=== PATIENT | male | born 1995 | race Caucasian/White ===

== ENCOUNTER 2020-03-31 20:25 | Emergency (ER) | payer SELFPAY ==
[~2020-03-31] VITALS: Ht 165.1 cm; Wt 102.5 kg
[2020-03-31 20:47] VITALS: BP 145/79
--- NOTE | 2020-03-31 20:51 | NUR ---
triaged and waiting in lobby.
--- NOTE | 2020-03-31 21:07 | NUR ---
EKG PERFORMED AT BEDSIDE. EKG READS SINUS RHYTHM @ 58
--- NOTE | 2020-03-31 21:42 | NUR ---
To ED bed 04
--- NOTE | 2020-03-31 21:45 | NUR ---
24 yo male bib for s/p fall. pt states he blacked out x 1-2 mins per . denies lightheadedness/dizziness @ this time. upper and lower extremities weak +1 strength. skin warm dry intact. lungs clear even unlabored. blood sugar check 91. denies pain @ this time. rachel locked in lowest position. ax: denies hx: denies
[2020-03-31 23:03] LABS: BASOPHILS # (AUTO) 0.1 K/uL (0.00-0.22); EOSINOPHILS # (AUTO) 0.3 K/uL (0-0.4); EOSINOPHILS % (AUTO) 3.2 % (0.0-4.0); HEMATOCRIT 42.3 % (36-52); HEMOGLOBIN 14.6 g/dL (12.0-18.0); LYMPHOCYTES # (AUTO) 3.1 K/uL (2.0-11.5); LYMPHOCYTES % (AUTO) 39.1 % (20.5-51.1); MEAN CORPUSCULAR HEMOGLOBIN 31 pg (27-31); MEAN CORPUSCULAR HGB CONC 34 g/dL (33-37); MONOCYTES # (AUTO) 0.7 K/uL (0.8-1.0); MONOCYTES % (AUTO) 8.8 % (1.7-9.3); NEUTROPHILS # (AUTO) 3.9 K/uL (1.8-7.7); NEUTROPHILS % (AUTO) 47.9 % (42.2-75.2); PLATELET COUNT (AUTO) 298 K/uL (140-450); RED CELL DISTRIBUTION WIDTH 13.2 % (11.6-13.7); WHITE BLOOD COUNT (AUTO) 8.1 K/uL (4.8-10.8)
[2020-03-31 23:38] LABS: ANION GAP 12.3 (8-16); CARBON DIOXIDE 27.9 mmol/L (21-32); CREATININE 1.1 mg/dL (0.6-1.3); POTASSIUM 4.2 mmol/L (3.5-5.1); TOTAL BILIRUBIN 0.4 mg/dL (0.0-1.0)
[2020-04-01 00:20] VITALS: BP 125/78
--- NOTE | 2020-04-01 00:20 | NUR ---
Patient discharged with v/s stable. Written and verbal after care instructions given and explained. Patient verbalized understanding. Ambulatory with steady gait. All questions addressed prior to discharge. Advised to follow up with PMD.
== END 2020-04-01 00:20 | disposition home or self-care (01) ==
LOC: MED 20:25
DX: R55 Syncope and collapse (principal)
CPT/HCPCS: 36415; 70450; 80053; 82948; 85025; 93005; 99285

== ENCOUNTER 2020-12-04 18:29 | Inpatient (IN) | payer MEDICAID, SELFPAY ==
[~2020-12-04] VITALS: Ht 167.6 cm; Wt 99.3 kg
[2020-12-04 18:35] VITALS: BP 144/89
--- NOTE | 2020-12-04 18:47 | NUR ---
Patient ambulated to bed 2
--- NOTE | 2020-12-04 18:52 | NUR ---
25/M presents to ED with c/o epigastric pain radiating to bilateral flank since last night. Patient states after eating soup last night he began having epigastric pain, states he took Tums with no relief. Patient states when he woke up today he began to feel dizzy and the pain began to radiate to bilateral flanks. Describes it as a 9/10 sharp constant pain. Patient denies nausea, vomiting, diarrhea, dysuria and hematuria. Patient placed in wnDr. Cordova bedside evaluating patient.
--- NOTE | 2020-12-04 19:14 | NUR ---
RECEIVED REPORT FROM SHANA JAIN, FOR CONTINUITY OF CARE
--- NOTE | 2020-12-04 19:15 | NUR ---
Pt report given to Mary. Transfer of care at this time.
[2020-12-04 19:22] LABS: BASOPHILS # (AUTO) 0.1 K/uL (0.00-0.22); BASOPHILS % (AUTO) 0.7 % (0.0-2.0); EOSINOPHILS # (AUTO) 0.2 K/uL (0-0.4); EOSINOPHILS % (AUTO) 2.4 % (0.0-4.0); HEMATOCRIT 43.5 % (36-52); HEMOGLOBIN 14.8 g/dL (12.0-18.0); LYMPHOCYTES # (AUTO) 2.2 K/uL (2.0-11.5); LYMPHOCYTES % (AUTO) 23.2 % (20.5-51.1); MEAN CORPUSCULAR HEMOGLOBIN 31 pg (27-31); MEAN CORPUSCULAR HGB CONC 34 g/dL (33-37); MEAN CORPUSCULAR VOLUME 89.7 fL (80-94); MONOCYTES # (AUTO) 0.7 K/uL (0.8-1.0); MONOCYTES % (AUTO) 7.7 % (1.7-9.3); NEUTROPHILS # (AUTO) 6.3 K/uL (1.8-7.7); PLATELET COUNT (AUTO) 325 K/uL (140-450); RED BLOOD CELL COUNT(AUTO) 4.84 MIL/uL (4.20-6.10); RED CELL DISTRIBUTION WIDTH 13.1 % (11.6-13.7); WHITE BLOOD COUNT (AUTO) 9.6 K/uL (4.8-10.8)
[2020-12-04 19:36] LABS: ALBUMIN 4.1 g/dL (3.4-5.0); CREATININE 1.1 mg/dL (0.6-1.3); TOTAL BILIRUBIN 0.4 mg/dL (0.0-1.0)
[2020-12-04] MEDS ORDERED: NACL 0.9% 1,000 ML IV ONE (19:55)
[2020-12-04] MEDS ORDERED: MORPHINE SULFATE 4 MG/ML SYR IVP ONE (19:55)
--- NOTE | 2020-12-04 20:40 | NUR ---
pt returned from CT via w/c
--- NOTE | 2020-12-04 22:21 | NUR ---
COLLECTED OLGA SWAB AND SENT TO LAB, HANDED TO CPT ELVIS
[2020-12-05 01:00] VITALS: BP 123/71
--- NOTE | 2020-12-05 01:00 | NUR ---
ADMITTED A 25M FROM ER .CAME BY OLS DUE TO EPIGASTRIC PAIN . MED SURG PT. AWAKE,ALERT AND ORIENTED X4. AMBULATORY. WITH NO OTHER MEDICAL PROBLEM/HISTORY. HAS IV ACCESS LOCATED ON HIS RT AC G#20 . CLEAR AND PATENT. KEPT PT NPO. PLAN OF CARE DISCUSSED AND VERBALIZED UNDERSTANDING. FREQUENT ROUNDS NEEDED. BED ON LOWEST POSITION. SIDE RAILS UP X2. CALL LIGHT AND URINAL PLACED WITHIN REACH. WILL CONTINUE TO MONITOR.
--- NOTE | 2020-12-05 01:00 | NUR ---
Patient will be admitted to care of DR. SOLIZ. Admited to [facility]. Will go to [id number]. Belongings list completed. Report to OLAYINKA JAIN.
[2020-12-05] MEDS: NACL 0.9% 1,000 ML IV SCH ×4 (01:13→11:09)
[2020-12-05] MEDS: MORPHINE SULFATE 2 MG/ML SYR IVP PRN (01:49)
--- NOTE | 2020-12-05 01:49 | NUR ---
C/O ABDOMINAL PAIN . MEDICATED ORDERED. WILL CONTINUE TO MONITOR.
[2020-12-05 04:00] VITALS: BP 114/67
--- NOTE | 2020-12-05 04:00 | NUR ---
PT ASLEEP. NO C/O ANY DISCOMFORT NOTED.
--- NOTE | 2020-12-05 05:30 | NUR ---
CHECKED ON PT. SLEEPING AT THIS TIME. NO S/S OF ANY PAIN NOTED.
--- NOTE | 2020-12-05 07:18 | NUR ---
ENDORSED PT IN STABLE CONDITION TO AM NURSE.
--- NOTE | 2020-12-05 07:20 | NUR ---
RECEIVED BEDSIDE REPORT FROM DIGITAL OPERATIONS ANALYST NURSE FOR CONTINUITY OF CARE. PT IS AWAKE,ALERT AND ORIENTED X4. AMBULATORY. RESPIRATIONS EVEN AND UNLABORED. ON ROOM AIR AND NO S/S OF DISTRESS NOTED. SKIN IS WARM AND DRY. HAS IV ACCESS LOCATED ON HIS RAC G#20. INTACT AND PATENT. KEPT PT NPO. PLAN OF CARE DISCUSSED. SAFETY PRECAUTIONS IN PLACE. BED ON LOWEST POSITION. CALL LIGHT AND URINAL PLACED WITHIN REACH. WILL CONTINUE TO MONITOR.
[2020-12-05 08:00] VITALS: BP 111/62
--- NOTE | 2020-12-05 09:00 | NUR ---
NO SCHEDULED MEDS GIVEN. PT IS STABLE. DENIES AT THE MOMENT. WILL CONTINUE TO MONITOR.
[2020-12-05] MEDS: MORPHINE SULFATE 4 MG/ML SYR IVP PRN ×5 (10:07→23:18)
--- NOTE | 2020-12-05 10:07 | NUR ---
PATIENT COMPLAINED OF 8/10 ABD PAIN. ADMINISTERED MORPHINE IVP PER MD ORDERED.
[2020-12-05] MEDS ORDERED: ONDANSETRON 4 MG/2 ML VIAL IM/IVP PRN (10:15)
[2020-12-05] MEDS ORDERED: KETOROLAC 30 MG/ML VIAL IVP PRN (10:15)
[2020-12-05] MEDS ORDERED: DOCUSATE SODIUM 100 MG GELCAP PO PRN (10:15)
[2020-12-05] MEDS ORDERED: LORazepam 2 MG/ML VIAL IM/IVP PRN (10:15)
[2020-12-05] MEDS ORDERED: POTASSIUM CHLORIDE 10 MEQ TABER PO PRN (10:15)
[2020-12-05] MEDS ORDERED: ZOLPIDEM 5 MG TAB PO PRN (10:15)
[2020-12-05] MEDS ORDERED: ACETAMINOPHEN 325 MG TAB PO PRN (10:15)
[2020-12-05] MEDS ORDERED: MAG SULF 2000 MG/WATER PREMIX 50 ML IV PRN (10:15)
[2020-12-05 10:40] LABS: BASOPHILS % (AUTO) 0.5 % (0.0-2.0); EOSINOPHILS # (AUTO) 0.2 K/uL (0-0.4); EOSINOPHILS % (AUTO) 2.3 % (0.0-4.0); HEMATOCRIT 42.9 % (36-52); HEMOGLOBIN 14.7 g/dL (12.0-18.0); LYMPHOCYTES # (AUTO) 1.9 K/uL (2.0-11.5); LYMPHOCYTES % (AUTO) 25.9 % (20.5-51.1); MEAN CORPUSCULAR HEMOGLOBIN 31 pg (27-31); MEAN CORPUSCULAR HGB CONC 34 g/dL (33-37); MEAN CORPUSCULAR VOLUME 89.6 fL (80-94); MONOCYTES # (AUTO) 0.5 K/uL (0.8-1.0); MONOCYTES % (AUTO) 7.3 % (1.7-9.3); NEUTROPHILS # (AUTO) 4.7 K/uL (1.8-7.7); PLATELET COUNT (AUTO) 288 K/uL (140-450); RED BLOOD CELL COUNT(AUTO) 4.79 MIL/uL (4.20-6.10); RED CELL DISTRIBUTION WIDTH 13.2 % (11.6-13.7); WHITE BLOOD COUNT (AUTO) 7.3 K/uL (4.8-10.8)
[2020-12-05 10:58] LABS: PROTHROMBIN TIME 10.2 secs (10.8-13.4)
[2020-12-05 10:59] LABS: CARBON DIOXIDE 29.2 mmol/L (21-32); CREATININE 0.9 mg/dL (0.6-1.3); POTASSIUM 4.2 mmol/L (3.5-5.1)
[2020-12-05 11:08] LABS: AMYLASE 200 U/L (25-115); CHOL/HDL RATIO 5.4 (1-4.5); HDL CHOLESTEROL 34 mg/dL (40-60); LDL (CALC) 121 mg/dL (60-100); LIPASE 923 U/L (73-393); MAGNESIUM 1.8 mg/dL (1.8-2.4); PHOSPHORUS 3.3 mg/dL (2.5-4.9); THYROID STIMULATING HORMONE 4.25 uIU/mL (0.34-3.74); TRIGLYCERIDES 151 mg/dL (30-150)
[2020-12-05 12:36] LABS: APPEARANCE,URINE CLEAR (CLEAR); BILIRUBIN,URINE NEGATIVE (NEGATIVE); BLOOD, URINE NEGATIVE (NEGATIVE); COLOR,URINE YELLOW (YELLOW); LEUKOCYTE ESTERASE ,URINE NEGATIVE (NEGATIVE); NITRITE, URINE NEGATIVE (NEGATIVE); PH,URINE 5.5 (5.0-9.0); UGLUCOSE NEGATIVE (NEGATIVE)
[2020-12-05 13:03] LABS: BARBITURATE, URINE NEGATIVE ng/ml (NEG <=200); BENZODIAZEPINE, URINE NEGATIVE ng/mL (NEG <=200); CANNABINOID, URINE NEGATIVE ng/mL (NEG <=50); COCAINE, URINE NEGATIVE ng/mL (NEG <=300); OPIATE, URINE POSITIVE ng/mL (NEG <=2000); PHENCYCLIDINE SCREEN,URINE NEGATIVE ng/mL (NEG <=25)
--- NOTE | 2020-12-05 13:45 | NUR ---
PATIENT COMPLAINED OF 8/10 ABD PAIN. ADMINISTERED MORPHINE IVP PER MD ORDERED.
--- NOTE | 2020-12-05 16:15 | NUR ---
PATIENT COMPLAINING OF DIFFICULTY BREATHING. O2 SATURATION WAS AT 96%. PLACED 2L NC AND O2 SATURATION AT 99%
--- NOTE | 2020-12-05 16:45 | NUR ---
PATIENT COMPLAINED OF 8/10 ABD PAIN. ADMINISTERED MORPHINE IVP PER MD ORDERED.
--- NOTE | 2020-12-05 19:15 | NUR ---
ENDORSED TO INDUSTRIAL SALES REPRESENTATIVE NURSE FOR CONTINUITY OF CARE. PT IS STABLE.
[2020-12-05 20:00] VITALS: BP 115/73
--- NOTE | 2020-12-05 20:00 | NUR ---
RECEIVED PATIENT AWAKE IN BED. PT REPORTS TOLERABLE ABD PAIN AT THIS TIME. DENIES N/V/D. PLAN OF CARE DISCUSSED WITH THE PATIENT. PT VERBALIZED UNDERSTANDING. BED LOWERED WITH CALL LIGHT WITHIN REACH. WILL CONTINUE TO MONITOR
--- NOTE | 2020-12-06 00:02 | NUR ---
PATIENT ASLEEP IN BED. NO S/S OF DISTRESS NOTED
[2020-12-06 04:00] VITALS: BP 123/70
[2020-12-06] MEDS: MORPHINE SULFATE 4 MG/ML SYR IVP PRN ×5 (05:36→21:38)
[2020-12-06 06:27] LABS: BASOPHILS % (AUTO) 0.3 % (0.0-2.0); EOSINOPHILS # (AUTO) 0.2 K/uL (0-0.4); EOSINOPHILS % (AUTO) 2.1 % (0.0-4.0); HEMATOCRIT 43.6 % (36-52); LYMPHOCYTES # (AUTO) 2.3 K/uL (2.0-11.5); LYMPHOCYTES % (AUTO) 29.5 % (20.5-51.1); MEAN CORPUSCULAR HEMOGLOBIN 31 pg (27-31); MEAN CORPUSCULAR HGB CONC 34 g/dL (33-37); MEAN CORPUSCULAR VOLUME 90.3 fL (80-94); MONOCYTES # (AUTO) 0.6 K/uL (0.8-1.0); MONOCYTES % (AUTO) 8.3 % (1.7-9.3); NEUTROPHILS # (AUTO) 4.6 K/uL (1.8-7.7); NEUTROPHILS % (AUTO) 59.8 % (42.2-75.2); PLATELET COUNT (AUTO) 307 K/uL (140-450); RED BLOOD CELL COUNT(AUTO) 4.83 MIL/uL (4.20-6.10); RED CELL DISTRIBUTION WIDTH 13.5 % (11.6-13.7); WHITE BLOOD COUNT (AUTO) 7.8 K/uL (4.8-10.8)
[2020-12-06 06:32] LABS: ANION GAP 15.3 (8-16); CREATININE 0.9 mg/dL (0.6-1.3); POTASSIUM 4.3 mmol/L (3.5-5.1)
[2020-12-06 06:41] LABS: MAGNESIUM 1.9 mg/dL (1.8-2.4); PHOSPHORUS 3.9 mg/dL (2.5-4.9)
[2020-12-06] MEDS: NACL 0.9% 1,000 ML IV SCH ×2 (07:29→19:43)
--- NOTE | 2020-12-06 07:33 | NUR ---
PT REPORT GIVEN TO AM NURSE. PATIENT ENDORSED IN STABLE CONDITION
[2020-12-06 08:07] LABS: T4 (THYROXINE) 7.1 ug/dL (4.5-12.0)
--- NOTE | 2020-12-06 08:36 | NUR ---
PT REFUSED HEPARIN. PT EDUCATED AND VERBALIZED UNDERSTANDING. PT STILL DID NOT WANT MED.
--- NOTE | 2020-12-06 08:52 | NUR ---
PATIENT HAS BEEN SCREENED AND CATEGORIZED LOW NUTRITION RISK. PATIENT WILL BE SEEN WITHIN 7 DAYS OF ADMISSION. 12/12/[address] Addendum: 12/06/20 at [address] CORRECT DATE OF ASSESSMENT IS 12/11/20
--- NOTE | 2020-12-06 10:16 | NUR ---
PT COMPLAINS OF 9/10 PAIN.MEDICATIONS GIVEN PER MD ORDER. PT EDUCATED. PT VERBALIZED UNDERSTANDING. PT IS ABLE TO MAKE NEEDS KNOWN. NO S/S OF DISTRESS. PT RESTING IN BED. CALL LIGHT IS WITHIN REACH ALL SAFETY MEASURES ARE IN PLACE.
--- NOTE | 2020-12-06 11:27 | NUR ---
PTS PAIN REASSESSED, PT IN BED SLEEPING EASY TO AROUSE.
[2020-12-06 12:00] VITALS: BP 130/73
--- NOTE | 2020-12-06 12:51 | NUR ---
PT ROUNDED ON. PT STATES PAIN HAS INCREASED TO TO ABDOMINAL ASSESSMENT BY MD. HE STATES HE WANTS TENZIN HAVE JELLO SEE HOW HE TOLERATES IT THEN DIET CAN ADVANCE. WILL VERIFY WITH MD
--- NOTE | 2020-12-06 13:49 | NUR ---
PT IS IN 8/ 10 PAIN UPPER ABDOMEN. MEDICATIONS GIVEN PER MD ORDER. PT EDUCATED. PT VERBALIZED UNDERSTANDING. PT IS ABLE TO MAKE NEEDS KNOWN. NO S/S OF DISTRESS. PT RESTING IN BED. CALL LIGHT IS WITHIN REACH ALL SAFETY MEASURES ARE IN PLACE.
--- NOTE | 2020-12-06 13:49 | NUR ---
PT TOLERATED JELLO.
--- NOTE | 2020-12-06 14:43 | NUR ---
PT TOLERATED BROTH, JELLOS AND WATER.
[2020-12-06] MEDS: MORPHINE SULFATE 2 MG/ML SYR IVP PRN (16:44)
--- NOTE | 2020-12-06 17:34 | NUR ---
PT AMBULATED TO SHOWER. PT PERFORMED SHOWER INDEPENDENTLY.
--- NOTE | 2020-12-06 18:36 | NUR ---
IV REINFORCED, CAP CHANGED, LINE FLUSHED. IV IS DRY CLEAN AND INTACT.
--- NOTE | 2020-12-06 19:17 | NUR ---
PT ENDORSED TO CARBON PAPER MACHINE OPERATOR RN FOR CONTINUITY OF CARE.
[2020-12-06 20:00] VITALS: BP 136/73
--- NOTE | 2020-12-06 20:47 | NUR ---
PATIENT REFUSED HEPARIN SQ, EXPLAINED THE RISKS AND BENEFITS, STILL REFUSES, PT SAID THAT HE IS WALKING AND MOVING, WASTED THE HEPARIN WITNESSED BY CRISTOBAL TAVERA.
--- NOTE | 2020-12-06 21:29 | NUR ---
PT IS STABLE, BEDSIDE ENDORSEMENT GIVEN TO CRISTOBAL TAVERA FOR CONTINUITY OF CARE.
--- NOTE | 2020-12-06 21:38 | NUR ---
RECEIVED PT AWAKE ON BED, COMPLAINING OF 9/10 ABDOMINAL PAIN, MEDICATED PRN WITH MORPHINE IVP, TOLERATING CLEAR LIQUID DIET, NO N/V NOTED, IVF INFUSING WELL, ALL NEEDS ATTENDED, CALL LIGHT WITHIN REACH.
--- NOTE | 2020-12-06 22:50 | NUR ---
SEEN PT SLEEPING, NO SIGNS OF DISTRESS, IVF INFUSING WELL, CONTINUE TO MONITOR CLOSELY.
--- NOTE | 2020-12-07 01:10 | NUR ---
ROUNDS MADE, SEEN PT SLEEPING, VISIBLE CHEST RISE AND FALL, IVF INFUSING WELL, MONITORED CLOSELY.
[2020-12-07] MEDS: MORPHINE SULFATE 4 MG/ML SYR IVP PRN ×3 (03:25→11:53)
--- NOTE | 2020-12-07 03:25 | NUR ---
PT AMBULATED TO BR WITH STEADY GAIT, VOIDED FREELY, PT BACK TO BED, PT WITH ABDOMINAL PAIN 7/10, MEDICATED PRN WITH MORPHINE, MONITORED CLOSELY.
[2020-12-07] MEDS: NACL 0.9% 1,000 ML IV SCH ×2 (03:27→12:15)
[2020-12-07 04:00] VITALS: BP 119/75
--- NOTE | 2020-12-07 06:00 | NUR ---
ROUNDS MADE, SEEN PT SLEEPING, NO SIGNS OF RESPIRATORY DISTRESS, IVF INFUSING WELL, MONITORED CLOSELY.
[2020-12-07 06:56] LABS: BASOPHILS % (AUTO) 0.8 % (0.0-2.0); EOSINOPHILS # (AUTO) 0.2 K/uL (0-0.4); EOSINOPHILS % (AUTO) 2.6 % (0.0-4.0); HEMATOCRIT 44.1 % (36-52); HEMOGLOBIN 14.8 g/dL (12.0-18.0); LYMPHOCYTES # (AUTO) 1.7 K/uL (2.0-11.5); LYMPHOCYTES % (AUTO) 27.1 % (20.5-51.1); MEAN CORPUSCULAR HEMOGLOBIN 30 pg (27-31); MEAN CORPUSCULAR HGB CONC 34 g/dL (33-37); MEAN CORPUSCULAR VOLUME 89.6 fL (80-94); MONOCYTES # (AUTO) 0.5 K/uL (0.8-1.0); MONOCYTES % (AUTO) 8.4 % (1.7-9.3); NEUTROPHILS # (AUTO) 3.9 K/uL (1.8-7.7); NEUTROPHILS % (AUTO) 61.1 % (42.2-75.2); PLATELET COUNT (AUTO) 302 K/uL (140-450); RED BLOOD CELL COUNT(AUTO) 4.92 MIL/uL (4.20-6.10); RED CELL DISTRIBUTION WIDTH 12.9 % (11.6-13.7); WHITE BLOOD COUNT (AUTO) 6.4 K/uL (4.8-10.8)
[2020-12-07 07:00] LABS: PHOSPHORUS 3.9 mg/dL (2.5-4.9)
[2020-12-07 07:02] LABS: ANION GAP 12.1 (8-16); CARBON DIOXIDE 28.1 mmol/L (21-32); CREATININE 0.9 mg/dL (0.6-1.3); POTASSIUM 4.2 mmol/L (3.5-5.1)
--- NOTE | 2020-12-07 07:28 | NUR ---
RECEIVED PT SLEEPING, EASILY AROUSABLE, NO DISTRESS NOTED, REPORT GIVEN TO CRISTOBAL MORIN FOR CONTINUITY OF CARE.
--- NOTE | 2020-12-07 07:29 | NUR ---
RECEIVED REPORT FROM NIGHT NURSE PT IS AAOX4 ON ROOM AIR, AMBULATORY, SKIN INTACT, IV INTACT ON RIGHT AC RUNNING SODIUM CHLORIDE 0.9% AT 60MLS/HR. SAFETY MEASURES IN PLACE AND CALL LIGHT WITHIN REACH. WILL CONTINUE TO MONITOR.
[2020-12-07 08:00] VITALS: BP 121/63
--- NOTE | 2020-12-07 08:35 | NUR ---
MEDICATION DUE GIVEN PT COMPLAINS OF PAIN IN THE EPIGASTRIC AREA 03/25 CHECK VITAL SIGNS PRIOR TO MEDICATION BP 121/63 SC 88.
[2020-12-07] MEDS ORDERED: OMEP20EC11 PO (09:03)
--- NOTE | 2020-12-07 11:50 | NUR ---
PATIENT COMPLAINS OF PAIN 03/25 CHECK VITAL SIGNS BP 112/62 MD 79.
--- NOTE | 2020-12-07 12:01 | NUR ---
PATIENT OUT IN HIS ROOM FOR CT ABDOMEN /PELVIS WITHOUT CONTRAST.
--- NOTE | 2020-12-07 13:51 | NUR ---
DISCHARGED INSTRUCTION GIVEN AT BEDSIDE ENCOURAGED TO CONTINUE MEDICATION AND TO FOLLOW UP WITH PCP WITHIN 5 DAYS, ENCOURAGED TO SEEK MEDICAL HELP INCASE OF EMERGENCIES, ID BANDS REMOVED AND IV INTACT AND COMPLETE NO BLEEDING, CHANGED PT OWN CLOTHES AND PATIENT TOOK ALL HIS BELONGINGS, ANSWERED ALL PT QUESTION AND VERBALIZES UNDERSTANDING. PT ESCORTED TO FRONT LOBBY ACCOMPANIED BY MOTHER , PT IS STABLE PT IS BEING DISCHARGED HOME.
== END 2020-12-07 13:51 | disposition home or self-care (01) | DRG 282 ==
LOC: MED 18:29 → MTU 22:17
DX: K85.90 Acute pancreatitis without necrosis or infection, unspecified (principal); R16.0 Hepatomegaly, not elsewhere classified; K76.0 Fatty (change of) liver, not elsewhere classified; E66.9 Obesity, unspecified; Z20.822 Contact with and (suspected) exposure to COVID-19; E78.5 Hyperlipidemia, unspecified; E02 Subclinical iodine-deficiency hypothyroidism; F17.200 Nicotine dependence, unspecified, uncomplicated; Z68.35 Body mass index [BMI] 35.0-35.9, adult
CPT/HCPCS: 36415; 71045; 80048; 80053; 80305; 81003; 82150; 83036; 83615; 83690; 83735; 83880; 84100; 84134; 84436; 84443; 84484; 85025; 85379; 85610; 85730; 87081; 93005; 96361; 96374; 99285; J1644; J1885; J2270; Q9967

== ENCOUNTER 2021-04-09 22:26 | Emergency (ER) | payer MEDICAID, SELFPAY ==
[~2021-04-09] VITALS: Ht 165.1 cm; Wt 99.8 kg
[~2021-04-09 22:26] MED LIST: OMEP20EC11 PO
[2021-04-09 22:46] VITALS: BP 142/91
--- NOTE | 2021-04-09 23:51 | NUR ---
TO BED VIA W/C
--- NOTE | 2021-04-10 | NUR ---
PT. IS A 25 Y/O MALE THAT CAME INTO ED WITH C/O OF EYE PAIN. 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 RATES PAIN AT 10/10 ON THE PAIN SCALE AT THIS TIME. WHEN ASKED TO DESCRIBE PAIN, PT. STATES "BURNING AND IRIS FEELING IN MY EYES." SKIN IS PINK/WARM/DRY; AAOX4 WITH EVEN AND STEADY GAIT; HR EVEN AND REGULAR; PT DENIES ANY FEVER, CP, SOB, OR COUGH AT THIS TIME; VSS; PATIENT POSITIONED FOR COMFORT; HOB ELEVATED; BEDRAILS UP X2; BED DOWN. ER MD MADE AWARE OF PT STATUS. PMH: DENIES ALLERGIES: BENJAMÍN
--- NOTE | 2021-04-10 00:31 | NUR ---
DR. PRICE AT BEDSIDE EXAMINING PATIENT
[2021-04-10] MEDS ORDERED: FLUORESCEIN OPTH STRIP 1 MG OP ONE (00:45)
[2021-04-10] MEDS ORDERED: TETRACAINE HCL/PF 0.5% OPTH 4 ML BTL OP ONE (00:45)
--- NOTE | 2021-04-10 00:47 | NUR ---
PT. IN SUPINE POSTIION WITH EYES CLOSED, HR EVEN AND REGULAR. WILL CONT. TO MONITOR
[2021-04-10] MEDS ORDERED: TOBR5SOL17 OP (01:36)
[2021-04-10] MEDS ORDERED: NAPR-54 PO (01:36)
[2021-04-10 02:00] VITALS: BP 122/79
--- NOTE | 2021-04-10 02:00 | NUR ---
Patient discharged with v/s stable. Written and verbal after care instructions given and explained. Patient alert, oriented and verbalized understanding of instructions. Ambulatory with by parent. All questions addressed prior to discharge. ID band removed. Patient advised to follow up with PMD. Rx of NAPROXENM AKTOB 5 given. Patient educated on indication of medication including possible reaction and side effects. Opportunity to ask questions provided and answered.
== END 2021-04-10 02:00 | disposition home or self-care (01) ==
LOC: MED 22:26
DX: H16.9 Unspecified keratitis (principal); Z79.899 Other long term (current) drug therapy
CPT/HCPCS: 99283

== ENCOUNTER 2023-12-22 16:48 | Emergency (ER) | payer BC ==
[~2023-12-22] VITALS: Ht 162.6 cm; Wt 105.3 kg
[~2023-12-22 16:48] MED LIST changes: +NAPR-337 PO; +TOBR5SOL38 OP
[2023-12-22 16:50] VITALS: BP 133/82; PULSE 87; RESP 18; TEMP 98.3; O2SAT 98
[2023-12-22 17:11] LABS: BASOPHILS # (AUTO) 0.1 K/uL (0.00-0.22); BASOPHILS % (AUTO) 0.7 % (0.0-2.0); EOSINOPHILS # (AUTO) 0.3 K/uL (0-0.4); HEMATOCRIT 42.9 % (36-52); HEMOGLOBIN 15.1 g/dL (12.0-18.0); LYMPHOCYTES # (AUTO) 2.8 K/uL (2.0-11.5); LYMPHOCYTES % (AUTO) 32.8 % (20.5-51.1); MEAN CORPUSCULAR HEMOGLOBIN 31 pg (27-31); MEAN CORPUSCULAR HGB CONC 35 g/dL (33-37); MEAN CORPUSCULAR VOLUME 88.5 fL (80-94); MONOCYTES # (AUTO) 0.7 K/uL (0.8-1.0); MONOCYTES % (AUTO) 8.2 % (1.7-9.3); NEUTROPHILS # (AUTO) 4.7 K/uL (1.8-7.7); NEUTROPHILS % (AUTO) 55.3 % (42.2-75.2); PLATELET COUNT (AUTO) 310 K/uL (140-450); RED BLOOD CELL COUNT(AUTO) 4.85 MIL/uL (4.20-6.10); RED CELL DISTRIBUTION WIDTH 13.3 % (11.6-13.7); WHITE BLOOD COUNT (AUTO) 8.6 K/uL (4.8-10.8)
[2023-12-22 17:25] LABS: CARBON DIOXIDE 24.8 mmol/L (21-32); POTASSIUM 3.8 mmol/L (3.5-5.1)
[2023-12-22 18:29] VITALS: BP 127/86; PULSE 85; RESP 18; TEMP 97.3; O2SAT 99
== END 2023-12-22 18:28 | disposition home or self-care (01) ==
LOC: MED 16:48
DX: R07.9 Chest pain, unspecified (principal); E86.0 Dehydration; F17.200 Nicotine dependence, unspecified, uncomplicated; Z72.89 Other problems related to lifestyle; Z79.899 Other long term (current) drug therapy; Z71.6 Tobacco abuse counseling
CPT/HCPCS: 36415; 71045; 80048; 84484; 85025; 93005; 99285